=== PATIENT | male | born 1970 ===

== ENCOUNTER 2018-11-03 10:38 | Inpatient (IN) | payer OTHER ==
[2018-11-03 10:59] VITALS: BMI 31.8
--- NOTE | 2018-11-03 11:59 | HP ---
COWS - Scale Resting Pulse: 0= ID 80 or Below Sweatin= Chills/Flushing Restless Observation: 0= Sits Still Pupil Size: 0= Normal to Room Light Bone or Joint Aches: 2= Severe Diffuse Aches Runny Nose/ Eye Tearin= Runny Nose/Eyes GI Upset > 30mins: 2= Nausea/Diarrhea Tremor Observation: 1= Tremor Bude, Not Seen Yawning Observation: 1= 1-2x During Session Anxiety or Irritability: 1=Feels Anxious/Irritable Goose Flesh Skin: 0=Smooth Skin COWS Score: 10 Admission ROS S - HPI Chief Complaint: I have to be here, my airfield services officer sent me. I thought I could control it but I guess it's gotten out of hand. Allergies/Adverse Reactions: Allergies Allergy/AdvReac Type Severity Reaction Status Date / Time No Known Allergies Allergy Verified 11/03/18 13:18 History of Present Illness: 48 yo gentleman here for detox from opiates - sent by airfield services officer because of opiate + urine toxicology. Patient states never in detox or rehab, never had overdose, never on methadone program, did try street suboxone in the past, states has used 'dope' on and off over the years. 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 Lives with family. Exam Limitations: Clinical Condition - Ebola screening Have you traveled outside of the country in the last 21 days: No (N) Have you had contact with anyone from an Ebola affected area: No Have you been sick,other than usual withdrawal symptoms: No Do you have a fever: No - Review of Systems Constitutional: Chills, Loss of Appetite, Malaise, Weakness EENT: reports: Tearing, Nose Congestion Respiratory: reports: No Symptoms reported Cardiac: reports: No Symptoms Reported GI: reports: Diarrhea, Nausea : reports: Dysuria Musculoskeletal: reports: Back Pain, Joint Pain, Muscle Pain Integumentary: reports: No Symptoms Reported Neuro: reports: Headache Endocrine: reports: No Symptoms Reported Hematology: reports: No Symptoms Reported Psychiatric: reports: Judgement Intact, Mood/Affect Appropiate, Orientated x3, Anxious Other Systems: Reviewed and Negative Patient History - Patient Medical History Hx Asthma: No Hx Cancer: No Hx Cardiac Disorders: No Hx Congestive Heart Failure: No Hx Hypertension: No Hx Hypercholesterolemia: No Hx Pacemaker: No HX Cerebrovascular Accident: No Hx Seizures: No Hx Diabetes: No Hx Gastrointestinal Disorders: No Hx Liver Disease: No Hx Genitourinary Disorders: No Hx Sexually Transmitted Disorders: No Hx Renal Disease (ESRD): No Hx Thyroid Disease: No Hx Human Immunodeficiency Virus (HIV): No Hx Hepatitis C: No Hx Depression: No Hx Suicide Attempt: No Hx Bipolar Disorder: No Hx Schizophrenia: No - Patient Surgical History Past Surgical History: Yes Hx Orthopedic Surgery: Yes (left rotator cuff repair 1999) - PPD History Previous Implant?: Yes Documented Results: Negative w/proof Implanted On Prior R Admission?: No PPD to be Administered?: Yes - Reproductive History Patient is a Female of Child Bearing Age (11 -55 yrs old): No (male) - Smoking Cessation Smoking history: Current every day smoker Have you smoked in the past 12 months: Yes Aproximately how many cigarettes per day: 12 Initiated information on smoking cessation: Yes 'Breaking Loose' booklet given: 11/03/18 (give on floor) - Substances Abused heroin Route: Inhalation Frequency: Daily Amount used: 5 bags Age of first use: 28 Date of Last Use: 11/02/18 oxycodone Route: Oral Frequency: Daily Amount used: two 30mg pills Age of first use: 46 Date of Last Use: 11/02/18 Family Disease History - Family Disease History Family Disease History: [place]: Father (,leukemia), Other: Father, Mother ( , in mva), Brother (one - living - healthy), Sister (two - one biological ), Son (three - healthy) Admission Physical Exam S - Vital Signs Vital Signs: Vital Signs - 24 hr 11/03/18 10:58 Temperature 98.8 F Pulse Rate 66 Respiratory 18 Rate Blood Pressure 125/78 - Physical General Appearance: Yes: Nourished, Appropriately Dressed, Moderate Distress, Irritable, Anxious HEENTM: Yes: EOMI, Hearing grossly Normal, Normocephalic, Normal Voice, Pharynx Normal, Nasal Congestion, Rhinorrhea Respiratory: Yes: Normal Breath Sounds, No Respiratory Distress Neck: Yes: No masses,lesions,Nodules Breast: Yes: Breast Exam Deferred Cardiology: Yes: Regular Rhythm, Regular Rate Abdominal: Yes: Soft Genitourinary: Yes: Dysuria Back: Yes: Normal Inspection Musculoskeletal: Yes: full range of Motion, Gait Steady, Back pain, Muscle Pain Extremities: Yes: Normal Inspection, Non-Tender Neurological: Yes: Fully Oriented, Alert, Motor Strength 5/5, Normal Mood/Affect , Normal Response Integumentary: Yes: Normal Color, Warm Lymphatic: Yes: Within Normal Limits - Diagnostic (1) Opioid dependence with withdrawal Current Visit: Yes Status: Acute (2) Nicotine dependence Current Visit: Yes Status: Acute Qualifiers: Nicotine product type: cigarettes Substance use status: uncomplicated Qualified Code(s): F17.210 - Nicotine dependence, cigarettes, uncomplicated (3) Chronic left shoulder pain Current Visit: Yes Status: Chronic Cleared for Admission [facility] - Detox or Rehab [facility] Level of Care: Medically Managed Detox Regimen/Protocol: Methadone [facility] Breath Alcohol Content Breath Alcohol Content: 0 Urine Drug Screen - Results Drug Screen Negative: No Urine Drug Screen Results: OPI-Opiates Inpatient Rehab Admission - Rehab Decision to Admit Inpatient rehab admission?: No
[2018-11-03] MEDS ORDERED: P-EPHED 60MG/TRIPROLIDI 2.5MG TABLET PO PRN (12:08)
[2018-11-03] MEDS ORDERED: IBUPROFEN 400 MG TABLET (FP) PO PRN (12:08)
[2018-11-03] MEDS ORDERED: MAGNESIUM CITRATE 300 ML BOTTLE PO PRN (12:08)
[2018-11-03] MEDS ORDERED: MAG HYDROX/AL HYDROX/SIMETH 30 ML UNIT-DOSE CUP PO PRN (12:08)
[2018-11-03] MEDS ORDERED: LOPERAMIDE HCL 2 MG CAPSULE PO PRN (12:08)
[2018-11-03] MEDS ORDERED: MENTHOL/PHENOL 1 EACH UD MM PRN (12:08)
[2018-11-03] MEDS ORDERED: ACETAMINOPHEN 325 MG TABLET (FP) PO PRN (12:08)
[2018-11-03] MEDS ORDERED: MAGNESIUM HYDROX 2400MG/30ML ORAL SUSPENSION 30 ML CUP PO PRN (12:08)
[2018-11-03] MEDS ORDERED: NICOTINE POLACRILEX 4 MG GUM BUC PRN (12:08)
[2018-11-03] MEDS ORDERED: guaiFENesin/D-METHORPHAN HB 10 ML UNIT-DOSE CUPS PO PRN (12:08)
[2018-11-03] MEDS ORDERED: METHADONE HCL 10 MG TABLET (FOR DETOX USE ONLY) PO ONE ×2 (13:30→23:00)
[2018-11-03] MEDS: diazePAM 5 MG TABLET PO PRN ×2 (14:26→20:32)
[2018-11-03] MEDS: MELATONIN 5 MG TABLETS PO PRN (22:28)
[2018-11-03] MEDS: THIAMINE HCL 100 MG TABLET (FP) PO SCH (22:28)
[2018-11-04] MEDS ORDERED: METHADONE HCL 10 MG TABLET (FOR DETOX USE ONLY) PO ONE (10:00)
[2018-11-04] MEDS: PRENATAL VITAMINS W/ FOLIC ACID TABLET (FP) PO SCH (10:07)
[2018-11-04] MEDS: diazePAM 5 MG TABLET PO PRN ×3 (10:08→18:53)
[2018-11-04 10:42] LABS: HEMATOCRIT 42.9 % (35.4-49); HEMOGLOBIN 15.2 GM/dL (11.7-16.9); MCH 32.3 pg (25.7-33.7); MCHC 35.4 g/dl (32.0-35.9); MEAN CELL VOLUME 91.2 fl (80-96); MEAN PLT VOLUME 8.1 fl (7.5-11.1); PLATELET COUNT 259 K/MM3 (134-434); RDW 14.3 % (11.9-15.9); WHITE BLOOD COUNT 9.4 K/mm3 (4.0-10.0)
[2018-11-04 11:00] LABS: ALK PHOS 51 U/L (45-117); ANION GAP 9 MMOL/L (8-16); BILIRUBIN,TOTAL 0.2 mg/dL (0.2-1); BLOOD UREA NITROGEN 13 mg/dL (7-18); CALCIUM 8.3 mg/dL (8.5-10.1); CHLORIDE 108 mmol/L (98-107); CO2 24 mmol/L (21-32); GLUCOSE,RANDOM 112 mg/dL (74-106); POTASSIUM 4.1 mmol/L (3.5-5.1); SGOT/AST 21 U/L (15-37); SGPT/ALT 27 U/L (13-61); SODIUM 141 mmol/L (136-145)
--- NOTE | 2018-11-04 12:39 | EKG ---
Test Reason : Blood Pressure : / mmHG Vent. Rate : 063 BPM Atrial Rate : 063 BPM P-R Int : 150 ms QRS Dur : 080 ms QT Int : 374 ms P-R-T Axes : 069 027 041 degrees QTc Int : 382 ms NORMAL SINUS RHYTHM NORMAL ECG NO PREVIOUS ECGS AVAILABLE Confirmed by NATHALIA NINO MD ([id number]) on 11/04/2018 12:39:33 PM Referred By: RAE MELENDREZ Confirmed By:NATHALIA NINO MD
--- NOTE | 2018-11-04 13:41 | PN ---
[facility] COWS - Scale Resting Pulse: 0= DE 80 or Below Sweatin= No chills or Flushing Restless Observation: 0= Sits Still Pupil Size: 2= Moderately Dilated Bone or Joint Aches: 2= Severe Diffuse Aches Runny Nose/ Eye Tearin= None GI Upset > 30mins: 1= Stomach Cramp Tremor Observation of Outstretched Hands: 0= None Yawning Observation: 0= None Anxiety or Irritability: 2=Irritable/Anxious Goose Flesh Skin: 0=Smooth Skin COWS Score: 7 [facility] Progress Note (SOAP) Subjective: PATIENT C/O MILD BODY ACHES, STOMACH CRAMPS AND ANXIETY. Objective: 11/04/18 13:40 Laboratory Tests 11/04/18 11/04/18 11/04/18 07:50 07:50 07:50 WBC 9.4 RBC 4.70 Hgb 15.2 Hct 42.9 MCV 91.2 MCH 32.3 MCHC 35.4 RDW 14.3 Plt Count 259 MPV 8.1 Sodium 141 Potassium 4.1 Chloride 108 H Carbon Dioxide 24 Anion Gap 9 BUN 13 Creatinine 1.0 Creat Clearance w eGFR > 60 Random Glucose 112 H Calcium 8.3 L Total Bilirubin 0.2 AST 21 ALT 27 Alkaline Phosphatase 51 Total Protein 7.0 Albumin 4.0 RPR Titer Nonreactive Vital Signs Temperature 98.4 F 11/04/18 09:39 Pulse Rate 59 L 11/04/18 09:39 Respiratory Rate 18 11/04/18 09:39 Blood Pressure 138/75 11/04/18 09:39 O2 Sat by Pulse Oximetry (%) PE: ALERT AND ORIENTED X 3 SKIN WARM AND DRY EXT FULL ROM, NO TREMORS AMB AD JESSICA ANXIOUS Assessment: 11/04/18 13:41 WITHDRAWAL SX Plan: CONTINUE DETOX CONTINUE ORAL FLUIDS AND MONITOR
[2018-11-04] MEDS: MELATONIN 5 MG TABLETS PO PRN (22:12)
[2018-11-04] MEDS: THIAMINE HCL 100 MG TABLET (FP) PO SCH (22:12)
[2018-11-05] MEDS ORDERED: METHADONE HCL 10 MG TABLET (FOR DETOX USE ONLY) PO ONE (10:00)
[2018-11-05] MEDS ORDERED: METHADONE HCL 5 MG TABLET (FOR DETOX USE ONLY) PO ONE (10:00)
[2018-11-05] MEDS: PRENATAL VITAMINS W/ FOLIC ACID TABLET (FP) PO SCH (10:13)
--- NOTE | 2018-11-05 10:45 | PN ---
[facility] COWS - Scale Resting Pulse: 0= [place] 80 or Below Sweatin= Chills/Flushing Restless Observation: 1= Difficult to Sit Still Pupil Size: 0= Normal to Room Light Bone or Joint Aches: 1= Mild Discomfort Runny Nose/ Eye Tearin= None GI Upset > 30mins: 0= None Tremor Observation of Outstretched Hands: 0= None Yawning Observation: 1= 1-2x During Session Anxiety or Irritability: 1=Feels Anxious/Irritable Goose Flesh Skin: 0=Smooth Skin COWS Score: 5 S Progress Note (SOAP) Subjective: I feel so much better I will like to get a lesser dose and be discharged tomorrow. I am having no withdrawals Objective: 11/05/18 10:47 Vital Signs Temperature 98.4 F 11/05/18 09:57 Pulse Rate 78 11/05/18 09:57 Respiratory Rate 16 11/05/18 09:57 Blood Pressure 137/82 11/05/18 09:57 O2 Sat by Pulse Oximetry (%) [id number] ambulating no acute distress Assessment: 11/05/18 10:47 little anxiety Plan: continue lesser taper of methadone d/c in am
[2018-11-05] MEDS: THIAMINE HCL 100 MG TABLET (FP) PO SCH (22:21)
[2018-11-05] MEDS: MELATONIN 5 MG TABLETS PO PRN (22:21)
[2018-11-05] MEDS: diazePAM 5 MG TABLET PO PRN (22:21)
[2018-11-06] MEDS ORDERED: METHADONE HCL 5 MG TABLET (FOR DETOX USE ONLY) PO ONE ×2 (06:00→10:00)
[2018-11-06 06:25] VITALS: BP 110/67; PULSE 57; TEMP 98.2
--- NOTE | 2018-11-06 09:43 | DS ---
[facility] Detox Discharge Summary Admission Date: 11/03/18 Discharge Date: 11/06/18 - History Present History: Opioid Dependence - Physical Exam Results Vital Signs: Vital Signs Temperature 98.2 F 11/06/18 06:00 Pulse Rate 57 L 11/06/18 06:00 Respiratory Rate 18 11/06/18 06:00 Blood Pressure 110/67 11/06/18 06:00 O2 Sat by Pulse Oximetry (%) - Treatment Hospital Course: Detox Protocol Followed, Detoxed Safely, Responded well, Discharged Condition Good, Rehab Referral Accepted - Medication Discharge Medications: Ambulatory Orders NK [No Known Home Medication] 11/03/18 - Diagnosis (1) Nicotine dependence Current Visit: Yes Status: Chronic Qualifiers: Nicotine product type: cigarettes Substance use status: uncomplicated Qualified Code(s): F17.210 - Nicotine dependence, cigarettes, uncomplicated (2) Opioid dependence with withdrawal Current Visit: Yes Status: Chronic (3) Chronic left shoulder pain Current Visit: Yes Status: Chronic - AMA Did Patient Leave Against Medical Advice: No (going home; referred to outpatient )
[2018-11-07] MEDS ORDERED: METHADONE HCL 10 MG TABLET (FOR DETOX USE ONLY) PO ONE (10:00)
[2018-11-08] MEDS ORDERED: METHADONE HCL 5 MG TABLET (FOR DETOX USE ONLY) PO ONE (06:00)
== END 2018-11-06 09:11 | disposition home or self-care (01) | DRG 775 ==
LOC: YASAS 10:38 → Y6N 13:10
PROVIDERS: ADMIT Surgery; ATTEND Surgery
PROC: HZ2ZZZZ Detoxification Services for Substance Abuse Treatment (ICD-10-PCS; principal; 2018-11-03)
DX: F10.230 Alcohol dependence with withdrawal, uncomplicated (principal); F17.210 Nicotine dependence, cigarettes, uncomplicated; F41.9 Anxiety disorder, unspecified; M25.512 Pain in left shoulder; G89.29 Other chronic pain
CPT/HCPCS: 36415; 80053; 85027; 86593; 93005; 93010